=== PATIENT | female | born 1950 | race Caucasian/White ===

== ENCOUNTER 2018-12-25 09:50 | Outpatient (CLI) | payer MEDICARE, OTHER ==
--- NOTE | 2018-12-25 11:39 | BD ---
DEXA BONE DENSITY STUDY: HISTORY: Postmenopausal. FINDINGS: Lumbar Spine: BMD (g/cm2) L1 0.936 T-Score: -0.5 L2 1.055 T-Score: +0.2 L3 1.085 T-Score: +0.0 L4 1.034 T-Score: -0.2 L1-L4 1.032 T-Score: -0.1 Femoral Neck: 0.783 T-Score: -0.6 Total Femur: 0.899 T-Score: -0.4 Impression: Normal bone mineral density of the lumbar spine and left femoral neck. POS: TPC
== END 2018-12-25 09:51 | disposition home or self-care (01) ==
LOC: BICMAMMO 09:50
PROVIDERS: ATTEND Obstetrics & Gynecology
DX: Z13.820 Encounter for screening for osteoporosis (principal)
CPT/HCPCS: 77080

== ENCOUNTER 2021-02-01 09:08 | Outpatient (CLI) | payer MEDICARE, OTHER | END 2021-02-01 09:09 | disposition home or self-care (01) | LOC: BICMAMMO 09:08 | PROVIDERS: ATTEND Obstetrics & Gynecology | DX: Z13.820 Encounter for screening for osteoporosis (principal) | CPT/HCPCS: 77080 ==

== ENCOUNTER 2023-02-20 10:15 | Outpatient (CLI) | payer MEDICARE, OTHER | END 2023-02-20 10:16 | disposition home or self-care (01) | LOC: BICRAD 10:15 | PROVIDERS: ATTEND Obstetrics & Gynecology | DX: M16.11 Unilateral primary osteoarthritis, right hip (principal) ==

== ENCOUNTER 2024-01-25 12:02 | Outpatient (CLI) | payer MEDICARE, OTHER | END 2024-01-25 12:03 | disposition home or self-care (01) | LOC: BICRAD 12:02 | PROVIDERS: ATTEND Internal Medicine Rheumatology | DX: M54.2 Cervicalgia (principal); M47.812 Spondylosis without myelopathy or radiculopathy, cervical region | CPT/HCPCS: 72040 ==